=== PATIENT | female | born 1955 | race American Indian/Alaskan Native ===

== ENCOUNTER 2017-04-04 18:51 | Emergency (ER) | payer MEDICARE ==
[2017-04-04 20:08] LABS: Bacteria,Urine 1+ /HPF (Negative); Bilirubin,Urine NEG (Negative); Blood,Urine NEG (Negative); Color,Urine Straw (Yellow); Nitrite,Urine NEG (Negative); Protein,Urine <15 mg/dL mg/dL (Negative); Urobilinogen,Urine < 2.0 mg/dL (<2.0)
[2017-04-04 20:21] LABS: Basophils % (Auto) 0.5 % (0.0-1.8); Eosinophils # (Auto) 0.3 K/mm3 (0.0-0.4); Eosinophils % (Auto) 3.8 % (0.0-4.3); Hemoglobin 13.1 gm/dl (10.1-14.3); Lymphocytes # (Auto) 1.4 K/mm3 (1.2-5.4); Lymphocytes % (Auto) 15.8 % (13.4-35.0); Mean Corpuscular HGB Conc 33 % (30-34); Mean Corpuscular Hemoglobin 31 pg (28-32); Mean Corpuscular Volume 95 fl (79-97); Monocytes # (Auto) 0.4 K/mm3 (0.0-0.8); Monocytes % (Auto) 4.2 % (0.0-7.3); Platelet Count 331 K/mm3 (140-440); Red Cell Distribution Width 14.9 % (13.2-15.2)
[2017-04-04 20:59] LABS: BUN/Creatinine Ratio 21; Blood Urea Nitrogen 19 mg/dL (7-17); Calcium 9.3 mg/dL (8.4-10.2); Hemolysis Index 3
--- NOTE | 2017-04-05 05:24 | XRay Report ---
FINAL REPORT EXAM: XR CHEST 1V AP HISTORY: swelling in feet TECHNIQUE: A portable semi upright view of the chest was submitted. FINDINGS: The heart is mildly enlarged. The lungs are not overtly congested. There are no localized infiltrates. Pleural fluid is not seen. The bones and soft tissues otherwise reveal obesity. IMPRESSION: Cardiomegaly. No evidence of acute infiltrates or congestion.
--- NOTE | 2017-04-05 09:07 | Emergency Department Report ---
ED Extremity Problem HPI - General Chief complaint: Extremity Problem,Nontraumatic Stated complaint: SWOLLEN FEET AND LEGS Time Seen by Provider: 04/05/17 08:51 Source: patient Mode of arrival: Ambulatory Limitations: Physical Limitation - History of Present Illness Initial comments: Patient is 61 years old female with history of high blood pressure and gout. Patient presented to the ER for evaluation of a non-pitting edema to both lower extremity for one week. Patient stated that she was staying with her sister and she staying in a chair for a long time with her leg hanging down. Patient denied any shortness of breath, chest pain, nausea or vomiting. No other complaint at this moment. MD Complaint: extremity swelling -: week(s) Location: lower extremity, bilateral lower extremity History of Same: No Severity scale (0 -10): 0 Consistency: intermittent - Related Data Home Medications Medication Instructions Recorded Confirmed Last Taken Allopurinol 100 mg PO DAILY 04/04/17 04/04/17 04/04/17 Amlodipine Besylate [Norvasc] 10 mg PO DAILY 04/04/17 04/04/17 04/04/17 Atenolol/Chlorthalidone 1 each PO DAILY 04/04/17 04/04/17 04/04/17 [Atenolol-Chlorthalidone 100-25] Metformin HCl 850 mg PO BID 04/04/17 04/04/17 04/04/17 Olmesartan Medoxomil 40 mg PO DAILY 04/04/17 04/04/17 04/04/17 Allergies Allergy/AdvReac Type Severity Reaction Status Date / Time No Known Allergies Allergy Unverified 04/04/17 19:19 ED Review of Systems ROS: Stated complaint: SWOLLEN FEET AND LEGS Other details as noted in HPI Comment: All other systems reviewed and negative Constitutional: denies: chills, fever Respiratory: denies: cough, orthopnea, shortness of breath, SOB with exertion, SOB at rest Cardiovascular: denies: chest pain, palpitations, dyspnea on exertion, edema, syncope, paroxysmal nocturnal dyspnea Gastrointestinal: denies: abdominal pain, nausea, vomiting, diarrhea, constipation, hematemesis, melena, hematochezia Musculoskeletal: denies: back pain, joint swelling Neurological: denies: headache, weakness, numbness, paresthesias ED Past Medical Hx - Past Medical History Previous Medical History?: Yes Hx Hypertension: Yes Hx Diabetes: Yes Additional medical history: gout - Surgical History Past Surgical History?: No - Social History Smoking Status: Never Smoker Substance Use Type: None, Alcohol - Medications Home Medications: Home Medications Medication Instructions Recorded Confirmed Last Taken Type Allopurinol 100 mg PO DAILY 04/04/17 04/04/17 04/04/17 History Amlodipine Besylate [Norvasc] 10 mg PO DAILY 04/04/17 04/04/17 04/04/17 History Atenolol/Chlorthalidone 1 each PO DAILY 04/04/17 04/04/17 04/04/17 History [Atenolol-Chlorthalidone 100-25] Metformin HCl 850 mg PO BID 04/04/17 04/04/17 04/04/17 History Olmesartan Medoxomil 40 mg PO DAILY 04/04/17 04/04/17 04/04/17 History ED Physical Exam - General Limitations: Physical Limitation General appearance: alert, in no apparent distress - Head Head exam: Present: atraumatic, normocephalic, normal inspection - Eye Eye exam: Present: normal appearance, PERRL - ENT ENT exam: Present: normal exam, mucous membranes moist - Neck Neck exam: Present: normal inspection, full ROM. Absent: tenderness, meningismus - Respiratory Respiratory exam: Present: normal lung sounds bilaterally. Absent: respiratory distress, wheezes, rales, rhonchi, stridor, chest wall tenderness, decreased breath sounds, prolonged expiratory - Cardiovascular Cardiovascular Exam: Present: regular rate, normal rhythm, normal heart sounds - GI/Abdominal GI/Abdominal exam: Present: soft, normal bowel sounds. Absent: distended, tenderness, guarding, rebound, rigid, mass, bruit, pulsatile mass - Extremities Exam Extremities exam: Present: normal inspection, normal capillary refill, pedal edema (2+ extremity edema) - Back Exam Back exam: Present: normal inspection, full ROM. Absent: CVA tenderness (R), CVA tenderness (L), muscle spasm, paraspinal tenderness - Neurological Exam Neurological exam: Present: alert, altered, oriented X3, CN II-XII intact, normal gait - Skin Skin exam: Present: warm, intact, normal color ED Course Vital Signs 04/04/17 04/05/17 04/05/17 19:19 06:01 06:52 Temperature 98.8 F 98 F Pulse Rate 80 77 80 Respiratory 18 24 Rate Blood Pressure 138/56 Blood Pressure 135/49 [Left] O2 Sat by Pulse 98 95 93 Oximetry 04/05/17 04/05/17 04/05/17 07:00 07:30 08:00 Temperature Pulse Rate 81 130 H 78 Respiratory 29 H 31 H 26 H Rate Blood Pressure 115/58 Blood Pressure [Left] O2 Sat by Pulse 93 93 98 Oximetry 04/05/17 08:30 Temperature Pulse Rate 74 Respiratory 29 H Rate Blood Pressure 93/37 Blood Pressure [Left] O2 Sat by Pulse 92 Oximetry - Reevaluation(s) Reevaluation #1: 04/05/17 09:07 Patient remained asymptomatic in the ER except for lower extremity edema. ED Medical Decision Making - Lab Data Result diagrams: 04/04/17 20:11 04/04/17 20:11 - EKG Data -: EKG Interpreted by [place] EKG shows normal: sinus rhythm Rate: normal - EKG Data Interpretation: no acute changes - Radiology Data Radiology results: report reviewed Referring Physician: RONNI KEITH Patient Name: EMMA JUAREZ Date of : 1955 Sex: Female Report Date: 2017-04-05 Report Status: Finalized Findings [facility] [address] [place] [address] XRay Report Signed Patient: EMMA JUAREZ MR#: [id number] : 1955 Acct:[id number] Age/Sex: 61 / F ADM Date: 04/04/17 Loc: ED Attending Dr: Ordering Physician: RONNI KEITH MD Date of Service: 04/05/17 Procedure(s): XR chest 1V ap Accession Number(s): [id number] cc: RONNI KEITH MD Fluoro Time In Minutes: FINAL REPORT EXAM: XR CHEST 1V AP HISTORY: swelling in feet TECHNIQUE: A portable semi upright view of the chest was submitted. FINDINGS: The heart is mildly enlarged. The lungs are not overtly congested. There are no localized infiltrates. Pleural fluid is not seen. The bones and soft tissues otherwise reveal obesity. IMPRESSION: Cardiomegaly. No evidence of acute infiltrates or congestion. Transcribed By: RB Dictated By: ROBERT BOWMAN MD Electronically Authenticated By: ROBERT BOWMAN MD Signed Date/Time: 04/05/17120 DD/ 0 TD/TT: 04/05/17120 Critical care attestation.: If time is entered above; I have spent that time in minutes in the direct care of this critically ill patient, excluding procedure time. ED Disposition Clinical Impression: Peripheral edema Disposition: DC-01 TO HOME OR SELFCARE Is pt being admited?: No Condition: Stable Instructions: Leg Edema (ED) Referrals: JERICHO FRANCIS MD [Other] - 3-5 Days
[2017-04-05] MEDS ORDERED: LASIX IV ONE (09:11)
[2017-04-05 09:28] VITALS: BP 114/42
== END 2017-04-05 09:42 | disposition home or self-care (01) ==
LOC: ED 18:51
DX: R60.0 Localized edema (principal); I10 Essential (primary) hypertension; E11.9 Type 2 diabetes mellitus without complications; M10.9 Gout, unspecified
CPT/HCPCS: 36415; 71045; 80048; 81001; 83880; 85025; 93005; 93010; 96374; 99284; J1940